=== PATIENT | male | born 1985 | race Caucasian/White ===

== ENCOUNTER 2024-02-10 13:38 | Emergency (ER) | payer OTHER ==
[~2024-02-10] VITALS: Ht 182.9 cm; Wt 72.6 kg
[2024-02-10 13:46] VITALS: BP 132/84; PULSE 70; RESP 20; TEMP 98; O2SAT 100
[2024-02-10 14:24] LABS: BASOPHILS % (AUTO) 1.3 % (0.0-2.0); EOSINOPHILS % (AUTO) 0.6 % (0.0-4.0); HEMOGLOBIN 13.1 g/dL (12.0-18.0); LYMPHOCYTES # (AUTO) 0.8 K/uL (2.0-11.5); LYMPHOCYTES % (AUTO) 23.2 % (20.5-51.1); MEAN CORPUSCULAR HEMOGLOBIN 27 pg (27-31); MEAN CORPUSCULAR HGB CONC 33 g/dL (33-37); MEAN CORPUSCULAR VOLUME 83.1 fL (80-94); MONOCYTES # (AUTO) 0.3 K/uL (0.8-1.0); MONOCYTES % (AUTO) 10.3 % (1.7-9.3); NEUTROPHILS # (AUTO) 2.1 K/uL (1.8-7.7); NEUTROPHILS % (AUTO) 64.6 % (42.2-75.2); PLATELET COUNT (AUTO) 112 K/uL (140-450); RED BLOOD CELL COUNT(AUTO) 4.82 MIL/uL (4.20-6.10); RED CELL DISTRIBUTION WIDTH 13.8 % (11.6-13.7); WHITE BLOOD COUNT (AUTO) 3.3 K/uL (4.8-10.8)
[2024-02-10 14:36] LABS: CALCIUM 8.1 mg/dL (8.5-10.1); CARBON DIOXIDE 27.4 mmol/L (21-32); CREATININE 1.1 mg/dL (0.6-1.3); POTASSIUM 5.4 mmol/L (3.5-5.1)
[2024-02-10] MEDS: NACL 0.9% 1,000 ML IV ONE (14:44)
[2024-02-10 14:50] LABS: ALBUMIN 3.1 g/dL (3.4-5.0); BILIRUBIN,DIRECT 0.2 mg/dL (0.0-0.3); TOTAL BILIRUBIN 0.7 mg/dL (0.0-1.0); TOTAL PROTEIN, SERUM 6.3 g/dL (6.4-8.2)
[2024-02-10] MEDS: INSULIN REGULAR, HUMAN 100 UNIT/ML VIAL IVP ONE (14:53)
[2024-02-10] MEDS: ONDANSETRON 4 MG/2 ML VIAL IVP ONE (14:54)
[2024-02-10] MEDS: MORPHINE SULFATE 4 MG/ML SYR IVP ONE (14:57)
[2024-02-10 16:01] VITALS: O2SAT 100
[2024-02-10] MEDS ORDERED: IBUP-2213 PO (16:01)
[2024-02-10] MEDS ORDERED: ONDA8TAB87 PO (16:01)
[2024-02-10 17:36] VITALS: BP 108/69; PULSE 75; RESP 13; TEMP 98
[2024-02-10 18:01] VITALS: O2SAT 100
== END 2024-02-10 18:14 ==
LOC: MED 13:38
DX: E11.65 Type 2 diabetes mellitus with hyperglycemia (principal); R11.0 Nausea; R07.89 Other chest pain; R06.02 Shortness of breath; F17.200 Nicotine dependence, unspecified, uncomplicated; Z98.890 Other specified postprocedural states
CPT/HCPCS: 36415; 71045; 80048; 80076; 83690; 83880; 84484; 85025; 93005; 96374; 96375; 99285; J1815; J2270; J2405; J7030